=== PATIENT | male | born 1955 | race Caucasian/White ===

== ENCOUNTER 2022-12-21 10:09 | Outpatient (OUT) | payer MEDICARE, OTHER, SELFPAY ==
--- NOTE | 2022-12-21 10:29 | XR_ITS ---
The [address] [address] Patient Name: GERALDO BRUMFIELD MRN: [id number] date: 1955 Sex: M Assigned Patient Location: [facility] Current Patient Location: [facility] Accession/Order Number: [id number] Exam Date: 12/21/2022 10:22 Report Date: 12/21/2022 11:52 At the request of: SARAH MOLINA Procedure: XR finger LT min 2V PROCEDURE: XR finger LT min 2V COMPARISON: None. HISTORY: Left thumb pain FINDINGS: BONES:No acute fracture or dislocation. Degenerative changes with joint space narrowing and marginal osteophyte formation most significant at the first carpometacarpal joint SOFT TISSUES:Negative. No visible soft tissue swelling. EFFUSION:None visible. OTHER: Negative. IMPRESSION: Osteoarthritis most significant first carpometacarpal joint Electronically authenticated by: SANDIP ALVARADO Date: 12/21/2022 11:52
== END 2022-12-21 10:10 | disposition home or self-care (01) ==
LOC: RAD 10:14
PROVIDERS: PCP Family Medicine; Visit Provider Family Medicine
DX: M79.645 Pain in left finger(s) (principal); M19.042 Primary osteoarthritis, left hand
CPT/HCPCS: 73140

== ENCOUNTER 2023-04-05 11:39 | Outpatient (OUT) | payer MEDICARE, OTHER, SELFPAY ==
[2023-04-05 13:29] LABS: Prostate Specific Antigen Scrn 1.34 ng/mL (<=4.00)
== END 2023-04-05 11:40 | disposition home or self-care (01) ==
PROVIDERS: Visit Provider Urology
DX: Z12.5 Encounter for screening for malignant neoplasm of prostate (principal); N40.1 Benign prostatic hyperplasia with lower urinary tract symptoms
CPT/HCPCS: 36415; G0103

== ENCOUNTER 2024-12-23 13:38 | Outpatient (OUT) | payer MEDICARE, OTHER, SELFPAY ==
--- OUTSIDE RECORDS SUMMARY | 2024-12-23 13:47 | XMS_ITS | Clinical Summary ---
Author Organization [facility] Healthcare Address [address] [place] [address] Care Team Providers Care Obstetrics Specialist Name Role Phone Unavailable Primary Care Provider Unavailabl e Social History Tobacco Use Types Packs/Day Years Used Date Smoking Tobacco: Never Assessed Sex and Gender Information Value Date Recorded Sex Assigned at Not on file Legal Sex Male 6:53 PM EDT Gender Identity Not on file Sexual Orientation Not on file Last Filed Vital Signs Vital Sign Reading Time Taken Comments Blood Pressure 152/93 10/01/2018 12:00 PM EDT Pulse - - Temperature - - Respiratory Rate - - Oxygen Saturation - - Inhaled Oxygen Concentration - - Weight 112 kg (248 lb) 08/01/2021 12:00 PM EST Height 185.4 cm (6' 1 ) 08/01/2021 12:00 PM EST Body Mass Index 32.72 08/01/2021 12:00 PM EST Plan of Treatment Not on file Insurance MEDICARE
--- OUTSIDE RECORDS SUMMARY | 2024-12-23 13:47 | XMS_ITS | Clinical Summary ---
Author Organization [facility] tem Address [id number] [address] [place] [address] Care Team Providers Care Home Health Provider Name Role Phone Hakeem Sosa DO Primary Care Provider [phone] Allergies No known active allergies Medications aspirin 81 mg Take 81 mg by mouth daily. Active HYDROcodone-vinny taminophen (NORCO) 5-325 mg per tabletIndicatio ns:Contusion of left hand, initial encounter Take 1 tablet by mouth every 6 (six) hours as needed for pain for up to 10 doses. Max Daily Amount: 4 tablets 10 tablet 07/22/2017 Active Social History Tobacco Use Types Packs/Day Years Used Date Smoking Tobacco: Former Cigarettes Q uit: 07/22/2010 Smokeless Tobacco: Never Alcohol Use Standard Drinks/Week Comments Yes 0 (1 standard drink = 0.6 oz pur e alcohol) twice a week beer Childcare Answer Date Recorded Childcare Unknown 12/04/2018 Employment Answer Date Recorded Employment Unknown 12/04/2018 Purpose - Life Answer Date Recorded Purpose and direction in life Unknown Sex and Gender Information Value Date Recorded Sex Assigned at Not on file Legal Sex Male 11:44 AM EDT Gender Identity Not on file Sexual Orientation Not on file Last Filed Vital Signs Vital Sign Reading Time Taken Comments Blood Pressure 163/89 07/22/2017 1:51 PM EST Pulse 72 07/22/2017 1:51 PM EST Temperature 36.4 C (97.6 F) 07/22/2017 12:20 PM EST Respiratory Rate 18 07/22/2017 1:51 PM EST Oxygen Saturation 96% 07/22/2017 1:51 PM EST Inhaled Oxygen Concentration - - Weight 113.4 kg (250 lb) 07/22/2017 12:20 PM EST Height 185.4 cm (6' 1 ) 07/22/2017 12:20 PM EST Body Mass Index 32.98 07/22/2017 12:20 PM EST Plan of Treatment Health Maintenance Due Date Last Done Comments Depression Screening 1965 Tobacco Screening 1965 Adult BMI Screening 09/21/1971 DTaP,Tdap and Td Vaccines (1 - Tdap) 1972 Zoster (Shingles) Vaccine (1 of 2) 09/21/2003 Fall Risk Screening 2018 COVID-19 Vaccine ( season) 2024, 08/30/2020 Influenza Vaccine 02/23/2025 04/08/2021, 03/20/2018 Medical Devices Not on file Insurance MEDICARE [facility] [place] [phone] [employer] Care Teams Home Health Provider Relationship Specialty Start Date End Date Hakeem Sosa DO PCP - General 07/22/17
--- NOTE | 2024-12-23 13:54 | XR_ITS ---
[address] [address] Patient Name: GERALDO BRUMFIELD MRN: [id number] date: 1955 Sex: M Assigned Patient Location: [facility] Current Patient Location: [facility] Accession/Order Number: [id number] Exam Date: 12/23/2024 14:23 Report Date: 12/23/2024 14:24 At the request of: SLOAN ISBELL NP Procedure: XR knee RT 4V RIGHT KNEE - 3 views CLINICAL HISTORY: Right Knee Pain COMPARISON: None FINDINGS: Small knee joint effusion. No acute bony process. Joint spaces appear maintained. Vascular calcifications. XR/XR knee RT 4V IMPRESSION: SMALL KNEE JOINT EFFUSION. NO ACUTE BONY PROCESS. Impression dictated by: Unruly Boyce Jr., D.O. 12/23/2024 2:24 PM Dictation Location: [place] [address] Electronically authenticated by: [id number] Y Date: 12/23/2024 14:24
== END 2024-12-23 13:39 | disposition home or self-care (01) ==
LOC: RAD 13:43
PROVIDERS: Visit Provider Nurse Practitioner Family
DX: M25.561 Pain in right knee (principal); M25.461 Effusion, right knee
CPT/HCPCS: 73564